=== PATIENT | male | born 1955 | race African-American/Black ===

== ENCOUNTER 2017-06-07 18:16 | Observation (INO) | payer OTHER ==
[~2017-06-07] VITALS: Ht 175.3 cm; Wt 84.2 kg
[~2017-06-07 18:16] MED LIST: ALBUTEROL2 MG; ANUCORT-HC25 M1 PO; ATROVENT HFA17 MCG; CIPROFLOXACN500 MG PO; COLACE100 MG PO; DILAUDID2 MG/ML IV; FLUTICASONE50 MCG; HYDROCHLOROT25 MG PO; HYDROCO/APAP1 T12 PO; LOPID600 MG PO; NEURONTIN300 MG PO; PERCOGESIC1 TAB PO; PREDNISONE10 MG PO; PRILOSEC20 MG PO; ROBITUSSIN AC10 ML PO; SIMETHICONE80 M2 PO; SINGULAIR PO; VERAPAMIL240 M1 PO
[2017-06-07 18:58] LABS: HEMOGLOBIN 13.9 g/dl (14.0-18.0); IMMATURE GRANULOCYTES 0.6 % (0.0-1.0); MEAN CELL VOLUME 85.3 fL CALC (80.0-100.0); MEAN CORPUSCULAR HGB 26.9 pG CALC (26.0-32.0); MEAN CORPUSCULAR HGB CONC 31.6 g/L CALC (32.0-36.0); NEUT# 9.37 thou/uL (1.82-7.42); RED BLOOD COUNT 5.16 mill/uL (4.70-6.10); RED CELL DISTRI WIDTH 13.6 % (11.5-15.5)
[2017-06-07 19:14] LABS: ALBUMIN 4.6 g/dL (3.2-5.0); ALKALINE PHOSPHATASE 138 u/l (38-126); ANION GAP 20 (6-22 (CALC)); BILIRUBIN, TOTAL 0.4 mg/dL (0.0-1.4); BUN 19 mg/dL (8-23); BUN/CREATININE RATIO 20 (12-20 (CALC)); CARBON DIOXIDE 23 mmol/l (22-30); CHLORIDE 98 mmol/l (95-108); CREATININE 0.9 mg/dL (0.7-1.3); GFR > 60 ML/MIN (>=60 (CALC)); GFR FOR AFR.AMER. > 60 ML/MIN (>=60 (CALC)); POTASSIUM 4.3 mmol/l (3.5-5.1); SGOT/AST 23 u/l (19-48); SGPT/ALT 16 u/l (11-66); SODIUM 136 mmol/l (137-146); TOTAL PROTEIN 8.3 g/dL (6.3-8.2)
[2017-06-07 19:26] LABS: MYOGLOBIN 52 ng/mL (0 - 121)
[2017-06-07] MEDS ORDERED: BENTYL10 MG PO (20:05)
[2017-06-07] MEDS ORDERED: LASIX 40 MG40 MG/TAB PO (20:06)
[2017-06-07] MEDS ORDERED: ADVAIR DISK1 INH (20:06)
[2017-06-07] MEDS ORDERED: BRILINTA90 MG PO (20:08)
[2017-06-07] MEDS ORDERED: PREVACID30 M1 PO (20:09)
[2017-06-07] MEDS ORDERED: LISINOPRIL5 MG PO (20:09)
[2017-06-07] MEDS ORDERED: METOPROL TAR25 MG PO (20:10)
[2017-06-07] MEDS ORDERED: KLOR-CON M2020 MEQ PO (20:11)
[2017-06-07] MEDS ORDERED: THEOPHYLLINE S300 MG PO (20:12)
[2017-06-07 20:33] LABS: AMYLASE 202 u/l (30-110); LIPASE 336 u/l (23-300)
[2017-06-07 22:00] VITALS: BP 105/50
[2017-06-07 22:04] LABS: URINE BLOOD DIPSTICK NEGATIVE (NEGATIVE); URINE COLOR YELLOW; URINE GLUCOSE - DIPSTICK NEGATIVE (NEGATIVE); URINE KETONE NEGATIVE (NEGATIVE); URINE LEUK ESTERASE NEGATIVE (NEGATIVE); URINE NITRITE - DIPSTICK NEGATIVE (Negative); URINE PH 5.5 (4.5-8.0); URINE PROTEIN - DIPSTICK NEGATIVE (NEG-TRACE); URINE SPECIFIC GRAVITY 1.025; URINE UROBILINOGEN - DIPSTICK 0.2 E.U./dL (0.2)
[2017-06-07 22:07] LABS: URINE BILIRUBIN - DIPSTICK NEGATIVE (NEGATIVE); URINE CLARITY CLEAR
[2017-06-08 00:10] VITALS: BP 85/62
[2017-06-08 04:50] VITALS: BP 94/65
[2017-06-08 06:36] LABS: HEMATOCRIT 38.7 % (39.0-50.0); HEMOGLOBIN 12.2 g/dl (14.0-18.0); IMMATURE GRANULOCYTES 0.7 % (0.0-1.0); MEAN CELL VOLUME 85.4 fL CALC (80.0-100.0); MEAN CORPUSCULAR HGB 26.9 pG CALC (26.0-32.0); MEAN CORPUSCULAR HGB CONC 31.5 g/L CALC (32.0-36.0); NEUT# 5.59 thou/uL (1.82-7.42); RED BLOOD COUNT 4.53 mill/uL (4.70-6.10); RED CELL DISTRI WIDTH 13.6 % (11.5-15.5)
[2017-06-08 06:53] LABS: ANION GAP 18 (6-22 (CALC)); BUN 13 mg/dL (8-23); BUN/CREATININE RATIO 17 (12-20 (CALC)); CALCULATED LDLCHOLESTEROL 50 mg/dL (62-129 (CALC)); CARBON DIOXIDE 24 mmol/l (22-30); CHLORIDE 102 mmol/l (95-108); CHOLESTEROL HDL RATIO 2.1 (<4.4 (CALC)); CREATININE 0.7 mg/dL (0.7-1.3); GFR > 60 ML/MIN (>=60 (CALC)); GFR FOR AFR.AMER. > 60 ML/MIN (>=60 (CALC)); HDL CHOLESTEROL 60 mg/dL (>=40); POTASSIUM 4.3 mmol/l (3.5-5.1); SODIUM 140 mmol/l (137-146); TOTAL CHOLESTEROL 129 mg/dl (0-199); TOTAL TRIGLYCERIDES 93 mg/dl (30-149); VLDL CHOLESTROL 19 mg/dl (4-45 (CALC))
[2017-06-08 07:52] VITALS: BP 113/74
[2017-06-08 12:00] VITALS: BP 108/73
[2017-06-08 16:00] VITALS: BP 114/68
== END 2017-06-08 18:19 | disposition designated cancer center or children's hospital (05) | DRG 313 ==
LOC: ED 18:16 → ED-I 19:46 → ED 20:08 → MS2 20:09
PROVIDERS: Emergency Medicine; Nurse Practitioner Family; ADMIT Internal Medicine; ATTEND Internal Medicine
DX: R07.89 Other chest pain (principal); I25.10 Atherosclerotic heart disease of native coronary artery without angina pectoris; I95.9 Hypotension, unspecified; Z99.81 Dependence on supplemental oxygen; J44.1 Chronic obstructive pulmonary disease with (acute) exacerbation; I10 Essential (primary) hypertension; E78.5 Hyperlipidemia, unspecified; Z98.61 Coronary angioplasty status; Z87.891 Personal history of nicotine dependence; Z79.02 Long term (current) use of antithrombotics/antiplatelets; R10.13 Epigastric pain
CPT/HCPCS: G0378; S0164

== ENCOUNTER 2017-12-07 18:21 | Inpatient (IN) | payer OTHER ==
[~2017-12-07] VITALS: Ht 175.3 cm; Wt 88.2 kg
[~2017-12-07 18:21] MED LIST changes: +ADVAIR DISK1 INH; +BENTYL10 MG PO; +BRILINTA90 MG PO; +KLOR-CON M2020 MEQ PO; +LASIX 40 MG40 MG/TAB PO; +LISINOPRIL5 MG PO; +METOPROL TAR25 MG PO; +PREVACID30 M1 PO; +THEOPHYLLINE S300 MG PO
[2017-12-07 19:12] LABS: HEMATOCRIT 45.4 % (39.0-50.0); HEMOGLOBIN 14.8 g/dl (14.0-18.0); IMMATURE GRANULOCYTES 0.4 % (0.0-5.0); MEAN CELL VOLUME 84.9 fL CALC (80.0-100.0); MEAN CORPUSCULAR HGB 27.7 pG CALC (26.0-32.0); MEAN CORPUSCULAR HGB CONC 32.6 g/L CALC (32.0-36.0); NEUT# 11.46 thou/uL (1.82-7.42); RED BLOOD COUNT 5.35 mill/uL (4.70-6.10)
[2017-12-07 19:27] LABS: ANION GAP 21 (6-22 (CALC)); BILIRUBIN, TOTAL 0.5 mg/dL (0.0-1.4); BUN 17 mg/dL (8-23); BUN/CREATININE RATIO 25 (12-20 (CALC)); CARBON DIOXIDE 27 mmol/l (22-30); CHLORIDE 101 mmol/l (95-108); CREATININE 0.7 mg/dL (0.7-1.3); GFR > 60 ML/MIN (>=60 (CALC)); GFR FOR AFR.AMER. > 60 ML/MIN (>=60 (CALC)); SGOT/AST 26 u/l (19-48); SGPT/ALT 23 u/l (11-66); SODIUM 144 mmol/l (137-146)
[2017-12-07 19:29] LABS: ALKALINE PHOSPHATASE 192 u/l (38-126); TOTAL PROTEIN 9.8 g/dL (6.3-8.2)
[2017-12-07 19:38] LABS: MYOGLOBIN 56 ng/mL (0 - 121)
[2017-12-07] MEDS ORDERED: ASPIRIN81 MG PO (20:08)
[2017-12-07] MEDS ORDERED: SPIRIVA HANDIHALER IN (20:13)
[2017-12-08] VITALS (21 sets, daily range): BP systolic 105–154; BP diastolic 74–93
[2017-12-08 06:23] LABS: HEMATOCRIT 39.7 % (39.0-50.0); IMMATURE GRANULOCYTES 0.7 % (0.0-5.0); MEAN CELL VOLUME 84.6 fL CALC (80.0-100.0); MEAN CORPUSCULAR HGB 27.7 pG CALC (26.0-32.0); MEAN CORPUSCULAR HGB CONC 32.7 g/L CALC (32.0-36.0); NEUT# 18.13 thou/uL (1.82-7.42); RED BLOOD COUNT 4.69 mill/uL (4.70-6.10); RED CELL DISTRI WIDTH 14.1 % (11.5-15.5)
[2017-12-08 06:43] LABS: ALBUMIN 4.1 g/dL (3.2-5.0); ALKALINE PHOSPHATASE 133 u/l (38-126); ANION GAP 21 (6-22 (CALC)); BILIRUBIN, TOTAL 0.2 mg/dL (0.0-1.4); BUN 19 mg/dL (8-23); BUN/CREATININE RATIO 28 (12-20 (CALC)); CARBON DIOXIDE 25 mmol/l (22-30); CHLORIDE 100 mmol/l (95-108); CREATININE 0.7 mg/dL (0.7-1.3); GFR > 60 ML/MIN (>=60 (CALC)); GFR FOR AFR.AMER. > 60 ML/MIN (>=60 (CALC)); POTASSIUM 4.1 mmol/l (3.5-5.1); SGOT/AST 23 u/l (19-48); SGPT/ALT 23 u/l (11-66); SODIUM 142 mmol/l (137-146)
[2017-12-08 06:45] LABS: TOTAL PROTEIN 7.6 g/dL (6.3-8.2)
[2017-12-09] VITALS (16 sets, daily range): BP systolic 120–159; BP diastolic 78–98
[2017-12-09 05:22] LABS: HEMATOCRIT 35.1 % (39.0-50.0); HEMOGLOBIN 11.4 g/dl (14.0-18.0); MEAN CELL VOLUME 85.2 fL CALC (80.0-100.0); MEAN CORPUSCULAR HGB 27.7 pG CALC (26.0-32.0); MEAN CORPUSCULAR HGB CONC 32.5 g/L CALC (32.0-36.0); RED BLOOD COUNT 4.12 mill/uL (4.70-6.10); RED CELL DISTRI WIDTH 14.1 % (11.5-15.5)
[2017-12-09 05:42] LABS: ANION GAP 15 (6-22 (CALC)); BUN 18 mg/dL (8-23); BUN/CREATININE RATIO 30 (12-20 (CALC)); CARBON DIOXIDE 27 mmol/l (22-30); CHLORIDE 102 mmol/l (95-108); CREATININE 0.6 mg/dL (0.7-1.3); GFR > 60 ML/MIN (>=60 (CALC)); GFR FOR AFR.AMER. > 60 ML/MIN (>=60 (CALC)); SODIUM 140 mmol/l (137-146)
[2017-12-10] VITALS (12 sets, daily range): BP systolic 131–167; BP diastolic 87–104
[2017-12-11 00:18] VITALS: BP 148/89
[2017-12-11 03:17] VITALS: BP 150/96
[2017-12-11 07:20] VITALS: BP 153/92
[2017-12-11 13:47] LABS: HEMATOCRIT 39.7 % (39.0-50.0); HEMOGLOBIN 12.7 g/dl (14.0-18.0); IMMATURE GRANULOCYTES 0.6 % (0.0-5.0); MEAN CELL VOLUME 85.4 fL CALC (80.0-100.0); MEAN CORPUSCULAR HGB 27.3 pG CALC (26.0-32.0); NEUT# 10.07 thou/uL (1.82-7.42); RED BLOOD COUNT 4.65 mill/uL (4.70-6.10); RED CELL DISTRI WIDTH 13.6 % (11.5-15.5)
[2017-12-11 15:03] LABS: BUN 14 mg/dL (8-23); BUN/CREATININE RATIO 30 (12-20 (CALC)); CHLORIDE 99 mmol/l (95-108); CREATININE 0.5 mg/dL (0.7-1.3); GFR > 60 ML/MIN (>=60 (CALC)); GFR FOR AFR.AMER. > 60 ML/MIN (>=60 (CALC)); SODIUM 143 mmol/l (137-146)
[2017-12-11 15:51] LABS: ANION GAP 10 (6-22 (CALC)); CARBON DIOXIDE 37 mmol/l (22-30); POTASSIUM 3.1 mmol/l (3.5-5.1)
[2017-12-11] MEDS ORDERED: LEVAQUIN750 MG PO (15:53)
[2017-12-11 16:13] VITALS: BP 144/79
== END 2017-12-11 17:05 | disposition designated cancer center or children's hospital (05) | DRG 871 ==
LOC: ED 18:21 → ED-I 19:40 → ED 12-08 02:12 → ICU 12-08 02:13 → MS2 12-10 13:22
PROVIDERS: Emergency Medicine; General Practice; ADMIT Internal Medicine; ATTEND Internal Medicine
PROC: 5A09357 Assistance with Respiratory Ventilation, Less than 24 Consecutive Hours, Continuous Positive Airway Pressure (ICD-10-PCS; principal; 2017-12-07)
DX: A41.9 Sepsis, unspecified organism (principal); J18.9 Pneumonia, unspecified organism; J44.0 Chronic obstructive pulmonary disease with (acute) lower respiratory infection; J44.1 Chronic obstructive pulmonary disease with (acute) exacerbation; J96.10 Chronic respiratory failure, unspecified whether with hypoxia or hypercapnia; E87.2 Acidosis; I11.0 Hypertensive heart disease with heart failure; I50.9 Heart failure, unspecified; E78.5 Hyperlipidemia, unspecified; I25.10 Atherosclerotic heart disease of native coronary artery without angina pectoris; Z95.5 Presence of coronary angioplasty implant and graft; Z99.81 Dependence on supplemental oxygen; Z87.891 Personal history of nicotine dependence
CPT/HCPCS: J1650

== ENCOUNTER 2018-08-12 21:02 | Emergency (ER) | payer OTHER ==
[~2018-08-12] VITALS: Ht 175.3 cm; Wt 81.8 kg
[~2018-08-12 21:02] MED LIST changes: +ASPIRIN81 MG PO; +LEVAQUIN750 MG PO; +SPIRIVA HANDIHALER IN
[2018-08-12 21:34] LABS: HEMATOCRIT 44.7 % (39.0-50.0); HEMOGLOBIN 14.3 g/dl (14.0-18.0); IMMATURE GRANULOCYTES 0.8 % (0.0-5.0); MEAN CORPUSCULAR HGB 27.2 pG CALC (26.0-32.0); NEUT# 22.81 thou/uL (1.82-7.42); RED BLOOD COUNT 5.26 mill/uL (4.70-6.10); RED CELL DISTRI WIDTH 14.4 % (11.5-15.5)
--- NOTE | 2018-08-12 21:45 | NUR ---
BREATHING TREATMENT GIVEN BACK TO BACK. BREATHING TECH FOR GOOD DEPOSITION TO THE LUNGS.
[2018-08-12 21:51] LABS: ALKALINE PHOSPHATASE 126 u/l (38-126); BILIRUBIN, TOTAL 0.5 mg/dL (0.0-1.4); BUN 30 mg/dL (8-23); BUN/CREATININE RATIO 34 (12-20 (CALC)); CHLORIDE 98 mmol/l (95-108); CREATININE 0.9 mg/dL (0.7-1.3); GFR > 60 ML/MIN (>=60 (CALC)); GFR FOR AFR.AMER. > 60 ML/MIN (>=60 (CALC)); POTASSIUM 3.8 mmol/l (3.5-5.1); SODIUM 140 mmol/l (137-146); TOTAL PROTEIN 8.9 g/dL (6.3-8.2)
[2018-08-12 21:52] LABS: ANION GAP 24 (6-22 (CALC)); CARBON DIOXIDE 22 mmol/l (22-30); SGOT/AST 43 u/l (19-48)
[2018-08-12] MEDS ORDERED: PREDNISONE50 MG PO (22:56)
[2018-08-12] MEDS ORDERED: DOXYCYCL HYC100 MG PO (22:56)
[2018-08-13 00:09] VITALS: BP 136/87
== END 2018-08-13 00:09 | disposition designated cancer center or children's hospital (05) | DRG 192 ==
LOC: ED 21:02
PROVIDERS: Family Medicine
DX: J44.1 Chronic obstructive pulmonary disease with (acute) exacerbation (principal); R06.02 Shortness of breath; D72.829 Elevated white blood cell count, unspecified; T50.995A Adverse effect of other drugs, medicaments and biological substances, initial encounter; I10 Essential (primary) hypertension; Y92.89 Other specified places as the place of occurrence of the external cause

== ENCOUNTER 2019-06-28 | Inpatient (IN) | payer OTHER ==
[2019-06-28] VITALS (14 sets, daily range): BP systolic 90–127; BP diastolic 64–84
[~2019-06-28] MED LIST changes: +DOXYCYCL HYC100 MG PO; +PREDNISONE50 MG PO
--- NOTE | 2019-06-28 08:38 | NUR ---
PT TO ROOM VIA EMS WITH CPAP IN PLACE; BRITTA X 2; RT AND DR FITZPATRICK AT [facility]
[2019-06-28 09:17] LABS: HEMATOCRIT 44.4 % (39.0-50.0); IMMATURE GRANULOCYTES 0.5 % (0.0-5.0); MEAN CELL VOLUME 80.6 fL CALC (80.0-100.0); MEAN CORPUSCULAR HGB 25.4 pG CALC (26.0-32.0); MEAN CORPUSCULAR HGB CONC 31.5 g/L CALC (32.0-36.0); NEUT# 18.93 thou/uL (1.82-7.42); RED BLOOD COUNT 5.51 mill/uL (4.70-6.10); RED CELL DISTRI WIDTH 16.9 % (11.5-15.5)
--- NOTE | 2019-06-28 09:30 | NUR ---
DR FITZPATRICK AT BEDSIDE FOR CENTRAL LINE PLACEMENT
[2019-06-28 09:41] LABS: INTERNATIONAL NORMALIZED RATIO 1.2 RATIO (0.7-1.3)
[2019-06-28 09:45] LABS: ALBUMIN 4.8 g/dL (3.2-5.0); ALKALINE PHOSPHATASE 135 u/l (38-126); BUN 12 mg/dL (8-23); BUN/CREATININE RATIO 11 (12-20 (CALC)); CHLORIDE 98 mmol/l (95-108); CREATININE 1.2 mg/dL (0.7-1.3); GFR > 60 ML/MIN (>=60 (CALC)); GFR FOR AFR.AMER. > 60 ML/MIN (>=60 (CALC)); SGOT/AST 21 u/l (19-48); SODIUM 139 mmol/l (137-146)
[2019-06-28 09:47] LABS: ANION GAP 21 (6-22 (CALC)); BILIRUBIN, TOTAL 0.5 mg/dL (0.0-1.4); CARBON DIOXIDE 23 mmol/l (22-30); TOTAL PROTEIN 8.7 g/dL (6.3-8.2)
--- NOTE | 2019-06-28 10:00 | NUR ---
IVF INFUSING TO RH AND LAC; IV ANTIBIOTICS INFUSING PER MAR; PT ADVISED ON POC AND ATTEMPT FOR FURTHER ATTEMPTS FOR CENTRAL LINE PLACEMENT; NO S/S OF HEMATOMA TO RIGHT GROIN SITE; DRESSING IN PLACE; PT DENIES ANY NEEDS AT THIS TIME; PT ADVISED ON POC AND CONTINUED WAIT TIME
[2019-06-28] MEDS ORDERED: DIPHENHYDRAM50 M2 PO (10:11)
[2019-06-28] MEDS ORDERED: OMEPRAZOLE DR20 MG PO (10:11)
--- NOTE | 2019-06-28 11:00 | NUR ---
PT SITTING UP ON STRETCHER; BIPAP IN PLACE; PT TOLERATING WELL; VSS; PT ADVISED OF CONTINUED WAIT TIME; WILL CONTINUE TO MONITOR
--- NOTE | 2019-06-28 12:05 | NUR ---
PT ADMITTED TO ICU BED 8 FROM ED FOR SEPSIS AND PNUEMONIA. PT ESCORTED WITH GUARDS X2 AND RT WITH BIPAP. PT A&OX4, ABLE TO MAKE NEEDS KNOWN. RESP SHALLOW AND FAST, SA02@89% ON BIPAP. PT TOLERATING WELL. PT TRANSFERRED FROM STRETCHER TO BED WITH MAX ASSIST. ORIENTED TO CALL LIGHT, ROOM AND UNIT. PT REMAINS NPO. CALL LIGHT IN REACH. WILL MONITOR.
--- NOTE | 2019-06-28 12:05 | NUR ---
Admission Note Report Given to: STEFANIE GUTIERREZ Transported by: Wheelchair X Stretcher Transported with: X Nurse Transporter X Patent IV X O2 X Capacitor Pack Press Operator Location: X ICU MS2
--- NOTE | 2019-06-28 13:20 | NUR ---
DR. MARVIN AT BEDSIDE FOR ASSESSMENT AND TO DISCUSS PLAN OF CARE, DISCUSSED POSSIBILITY OF TUBE PLACEMENT. PT DECLINED. GUARDSX2 REMAIN AT BEDSIDE.
--- NOTE | 2019-06-28 13:25 | NUR ---
RT NOTIFIED PER DR. MARVIN. ARRIVED AT BEDSIDE. PT BIPAP REMOVED, PLACED ON NON-REBREATHER. PT TOLERATING. PT CONTINUES TO BE TACHY ON TELEMETRY, HR 150'S.
--- NOTE | 2019-06-28 13:26 | NUR ---
BIPAP STANDBY. PLACED ON 3L NC PER DR. TYSON.
--- NOTE | 2019-06-28 14:00 | NUR ---
DR. MARVIN NOTIFIED, PT REMAINS TACHY IN 150'S, NEW ORDERS TO KEEP HYDRATING ORDERED AND REPEAT LACTIC, NOTED. PT DENIES CP, OR DISTRESS AT THIS TIME. CALL LIGHT IN REACH. WILL MONITOR.
--- NOTE | 2019-06-28 14:26 | NUR ---
LAB AT BEDSIDE FOR BLOOD DRAW.
--- NOTE | 2019-06-28 16:15 | NUR ---
LACTIC OBTAINED FROM [facility]. PT TOLERATED WELL.
--- NOTE | 2019-06-28 19:30 | NUR ---
PT RESTING IN BED,NO SIGNS OF DISTRESS NOTED, NONREBREATHER IN PLACE 4L, PT ALERT AND ORIENTED X3, RESP EVEN AND UNLABORED. PT NPO REQUESTING FOOD, WILL CALL MD FOR ORDER. DISCUSSED POC, FLUIDS RUNNING TO RIJ, GUARDS X2 AT BEDSIDE, ASSESSMENT COMPLETED CALL LIGHT IN REACH,CONTINUE TO MONITOR.
--- NOTE | 2019-06-28 20:06 | NUR ---
SPOKE WITH OBTAINED ORDER FOR CARDIAC DIET. PT CONTENT, SNACKS GIVEN AND JUICE. GUARDS AT BEDSIDE.
--- NOTE | 2019-06-28 21:36 | NUR ---
RT AT BEDSIDE, ASKING PT IF HE WOULD LIKE TO BE PLACED ON BIPAP, PT SATTING 99% ON NONREBREATHER, PT STATES HE IS COMFORTABLE IS, DOES NOT WANT BIPAP. PT AND GUARDS INSTRUCTED TO NOTIFY HORSE TRAINER IF PT BECOMES UNDER DISTRESS. CALL LIGHT IN REACH,CONTINUE TO MONITOR.
--- NOTE | 2019-06-28 22:24 | NUR ---
PT HAS NOT VOIDED, DECLINED NEED TO VOID. CALL LIGHT IN REACH,CONTINUE TO MONITOR. NEW IV BAG CHRISTELLE CORREA INITIATED. GUARDS AT BEDSIDE
[2019-06-29] VITALS (14 sets, daily range): BP systolic 95–114; BP diastolic 57–75
--- NOTE | 2019-06-29 | NUR ---
CON INITATIATED. PT BLADDER SCANNED 697ML IN BLADDER, ATTEMPTED TO GET PT UP OUT OF BED, PT DECLINER STATES HE DOES NOT HAVE THE URGE TO PEE. INFORMED PT THAT CLEANER HOUSEKEEPING WILL WAIT BUT ATTEMPT TO HAVE PT VOID AT A LATER TIME. CALL LIGHT IN REACH, GUARDS X2. CONTINUE TO MONITOR.
--- NOTE | 2019-06-29 03:37 | NUR ---
PT RESTING IN BED WITH EYES CLOSED, NO SIGNS OF DISTRESS NOTED, RESP EVEN AND UNLABORED. CALL LIGHT IN REACH, GUARDS AT BEDSIDE, CONTINUE TO MONITOR.
--- NOTE | 2019-06-29 04:17 | NUR ---
PT VOIDED 700ML OF DARK YANCY URINE, SPECIMEN SENT TO LAB.
[2019-06-29 04:45] LABS: URINE BILIRUBIN - DIPSTICK NEGATIVE (NEGATIVE); URINE BLOOD DIPSTICK NEGATIVE (NEGATIVE); URINE COLOR YELLOW; URINE GLUCOSE - DIPSTICK NEGATIVE (NEGATIVE); URINE KETONE TRACE mg/dL (NEGATIVE); URINE LEUK ESTERASE NEGATIVE (NEGATIVE); URINE NITRITE - DIPSTICK NEGATIVE (Negative); URINE PROTEIN - DIPSTICK NEGATIVE (NEG-TRACE); URINE SPECIFIC GRAVITY 1.025; URINE UROBILINOGEN - DIPSTICK 0.2 E.U./dL (0.2)
--- NOTE | 2019-06-29 05:02 | NUR ---
AM LABS OBTAINED FROM CENTRAL LINE, PT TOLERATED WELL. MEDICATED WITH ROBITUSSIN. CALL LIGHT IN REACH,CONTINUE TO MONITOR. GUARDS X2.
[2019-06-29 05:24] LABS: MEAN CELL VOLUME 84.1 fL CALC (80.0-100.0); MEAN CORPUSCULAR HGB 25.6 pG CALC (26.0-32.0); MEAN CORPUSCULAR HGB CONC 30.4 g/L CALC (32.0-36.0); RED BLOOD COUNT 3.95 mill/uL (4.70-6.10); RED CELL DISTRI WIDTH 17.1 % (11.5-15.5)
[2019-06-29 05:29] LABS: HEMATOCRIT 33.2 % (39.0-50.0); HEMOGLOBIN 10.1 g/dl (14.0-18.0)
[2019-06-29 05:48] LABS: ALKALINE PHOSPHATASE 70 u/l (38-126); BILIRUBIN, TOTAL 0.3 mg/dL (0.0-1.4); BUN 9 mg/dL (8-23); BUN/CREATININE RATIO 15 (12-20 (CALC)); CHLORIDE 107 mmol/l (95-108); CREATININE 0.6 mg/dL (0.7-1.3); GFR > 60 ML/MIN (>=60 (CALC)); GFR FOR AFR.AMER. > 60 ML/MIN (>=60 (CALC)); MAGNESIUM 1.4 mg/dL (1.6-2.3); SGOT/AST 19 u/l (19-48); SODIUM 140 mmol/l (137-146)
[2019-06-29 05:55] LABS: ALBUMIN 2.9 g/dL (3.2-5.0); ANION GAP 8 (6-22 (CALC)); CARBON DIOXIDE 29 mmol/l (22-30); POTASSIUM 3.9 mmol/l (3.5-5.1); TOTAL PROTEIN 5.5 g/dL (6.3-8.2)
--- NOTE | 2019-06-29 06:45 | NUR ---
RECIEVED REPORT FROM STEFANIE HORVATH. ASSUMED PT CARE.
--- NOTE | 2019-06-29 08:00 | NUR ---
PT RESTING IN BED, ALERT, ABLE TO MAKE NEEDS KNOWN. PT DENIES CP, OR DISTRESS AT THIS TIME. REMAINS ON NON- REBREATHER, SAO2@97% . PT BECOMES SOB WITH MINIMAL EXERTION. GUARDS X2 REMAIN AT BEDSIDE. PT REMAINS SHACKLED AT E. CALL LIGHT IN REACH. WILL MONITOR.
--- NOTE | 2019-06-29 10:00 | NUR ---
PT RESTING IN BED WATCHING TV, OFFER NO COMPLAINTS AT THIS TIME. RESPIRATION EVEN/UNLABORED, URINAL AT BEDSIDE. GUARDS REMAIN AT BEDSIDE.
--- NOTE | 2019-06-29 12:02 | NUR ---
DR. MARVIN AT BEDSIDE FOR ASSESSMENT AND TO DISCUSS PLAN OF CARE, NEW ORDERS RECIEVED.
--- NOTE | 2019-06-29 13:12 | NUR ---
RADIOLOGY AT BEDSIDE FOR CXR
--- NOTE | 2019-06-29 15:30 | NUR ---
PT WAS INCONTINENT OF LARGE AMOUNT OF URINE, PT GIVEN A COMPLETE BED BATH, FULL LINEN CHANGE, ATTEMPTED CONDOM CATH, UNABLE TO UTILIZE DUE TO PENIS SIZE. WILL UPDATE DR. MARVIN. PT TOLERATED ALL ACTIVITY WELL
--- NOTE | 2019-06-29 16:13 | NUR ---
PT REQUESTED TO GO ON BIPAP , STATED " i AM TIRED, REALLY, REALLY TIRED." RT CALLED. BIPAP PLACED. CALL LIGHT IN REACH. GUARDS X2 REMAIN AT BEDSIDE.
--- NOTE | 2019-06-29 16:30 | NUR ---
BIPAP REMOVED, PT STATED HE WAS NAUSEOUS. NOTIFIED DR. MARVIN. NEW ORDERS RECIEVED.
--- NOTE | 2019-06-29 16:49 | NUR ---
RT AT BEDSIDE, BIPAP REPLACED.
--- NOTE | 2019-06-29 17:00 | NUR ---
NOTIFIED DR. MARVIN, UPDATED ON PT STATED HIS BELLY WAS BURNING, BIPAP REMOVED, NON REBREATHER PLACED. NEW ORDERS RECIEVED. LABS OBTAINED FROM CENTRAL LINE , PT TOLERATED WELL. PT CONTINUES TO NAUSEOUS AND SPITTING THICK CLEAR MUCUS IN BACK.
--- NOTE | 2019-06-29 18:06 | NUR ---
DR. MARVIN NOTIFIED OF RESULTS. PT RESTING QUIETLY IN BED.
--- NOTE | 2019-06-29 20:00 | NUR ---
awake. resps labored. has prod cough of yellow sputum. o2 cont per mask. book trimmer shows sinus rhythm hr 92. #20 lac & rt hand saline locks. rij tlc in place. refused po fluids. has not voided as of yet. rt ankle shackled to bed. guards x2 @ bedside. fall precautions cont.
--- NOTE | 2019-06-29 20:15 | NUR ---
zofran 4mg ivp given for c/o nausea.
--- NOTE | 2019-06-29 21:25 | NUR ---
robitussin 10cc po given for cough. pt requires FREQ attention from staff as he removes o2 freq, repositioned in bed, socks replaced, water given. pt is restless. resps increasing.
--- NOTE | 2019-06-29 22:15 | NUR ---
blood drawn & sent to lab.
--- NOTE | 2019-06-29 22:40 | NUR ---
pt VERY dramatic & present. c/o sob. sao2 96%. pt yelled out "i need something to calm me down!" removes o2 mask freq then o2 sat drops to 85-87%. nurse monitoring shows sinus rhythm hr 94. rt called. bipap on per pts request. dr dean notified. orders rec'd.
--- NOTE | 2019-06-29 23:15 | NUR ---
awakened pt. spoke to pt @ length regarding dramatic episode, no need for bipap, neb tx, steroids & nerve med. pt verbalized understanding. pt said "i'm so sick." pt reassured. xanax 0.25mg & sonata 5mg po given. bipap off & mask resumed.
[2019-06-30] VITALS (15 sets, daily range): BP systolic 93–128; BP diastolic 58–78
--- NOTE | 2019-06-30 00:01 | NUR ---
eyes closed. o2 cont per mask. no distress. compliance monitor shows sinus rhythm hr 90.
--- NOTE | 2019-06-30 02:00 | NUR ---
eyes closed. no distress. bottom stop attacher shows sinus rhythm pvcs hr 98.
--- NOTE | 2019-06-30 04:56 | NUR ---
blood drwn & sent to lab.
[2019-06-30 05:09] LABS: HEMATOCRIT 35.6 % (39.0-50.0); HEMOGLOBIN 10.6 g/dl (14.0-18.0); MEAN CELL VOLUME 85.8 fL CALC (80.0-100.0); MEAN CORPUSCULAR HGB 25.5 pG CALC (26.0-32.0); MEAN CORPUSCULAR HGB CONC 29.8 g/L CALC (32.0-36.0); RED BLOOD COUNT 4.15 mill/uL (4.70-6.10); RED CELL DISTRI WIDTH 17.4 % (11.5-15.5)
[2019-06-30 05:36] LABS: ANION GAP 8 (6-22 (CALC)); BILIRUBIN, TOTAL 0.3 mg/dL (0.0-1.4); BUN 14 mg/dL (8-23); BUN/CREATININE RATIO 26 (12-20 (CALC)); CARBON DIOXIDE 30 mmol/l (22-30); CHLORIDE 106 mmol/l (95-108); CREATININE 0.5 mg/dL (0.7-1.3); GFR > 60 ML/MIN (>=60 (CALC)); GFR FOR AFR.AMER. > 60 ML/MIN (>=60 (CALC)); POTASSIUM 4.2 mmol/l (3.5-5.1); SODIUM 140 mmol/l (137-146); TOTAL PROTEIN 5.8 g/dL (6.3-8.2)
[2019-06-30 05:43] LABS: ALKALINE PHOSPHATASE 144 u/l (38-126); SGOT/AST 37 u/l (19-48)
--- NOTE | 2019-06-30 06:15 | NUR ---
rij dsg changed.
--- NOTE | 2019-06-30 06:55 | NUR ---
RECVD REPORT FROM ISIS GILMAN @START OF SHIFT.
--- NOTE | 2019-06-30 07:32 | NUR ---
PT LAYING IN BED, CROOKED. ANKLE x1 SHACKLED TO BED. 2 BRITTA @BEDSIDE. PT ON NRB x2 DAYS, LAST ABG ON 06/28/2019. PT IS A DNR. PT NOT PLEASANT TOWARDS STAFF. BREATHING EVEN/UNLABORED. CALLBELL W/IN REACH.
--- NOTE | 2019-06-30 07:40 | NUR ---
PT REFUSING BREAKFAST @THIS TIME. SLEEPING ON RIGHT SIDE. TRAY LEFT IN ROOM. GAURDS x2 EATING TRAYS FROM [place].
--- NOTE | 2019-06-30 08:46 | NUR ---
DR MARVIN @BEDSIDE, ASSESSING PT. PT SLEEPY/DROWSY. ABLE TO ROLL TO THE SIDE FOR LUNG AUSCULTATION. WILL TRY PT ON NC, WILL REMOVE BIPAP FROM ROOM & GET REPEAT ABD XR. RT NOTIFIED. DR PALMA NOTIFIED OF CONSULT.
--- NOTE | 2019-06-30 09:22 | NUR ---
PLACED PT ON 10LHF NC SAO2 95%. PT TOLLERATING WELL. RR 18
--- NOTE | 2019-06-30 09:30 | NUR ---
PT MEDICATED PER EMAR +COUGH MED. PT DENIES ANY FURTHER NEEDS OR QUESTIONS.
--- NOTE | 2019-06-30 10:12 | NUR ---
DR PALMA @BEDSIDE FOR CONSULT. PT ADMITTS TO PASSING GAS & STATES HIS ABD USUALLY LOOKS LIKE THIS. PER MD, LIMIT FLUIDS.
--- NOTE | 2019-06-30 10:52 | NUR ---
DR PALMA NOTIFIED THAT UPPER GI SERIES WON'T BE DONE UNTIL TUESDAY. PT TO BE KEPT NPO UNTIL SERIES COMPLETED.
--- NOTE | 2019-06-30 11:15 | NUR ---
PT & GAURDS x2 UPDATED ON POC; AWARE OF NPO STATUS. IV ABX STARTED.
--- NOTE | 2019-06-30 11:31 | NUR ---
PORT ABD XR COMPLETED.
--- NOTE | 2019-06-30 11:46 | NUR ---
PLACE PT ON NRB, & ORDER CTA.
--- NOTE | 2019-06-30 13:17 | NUR ---
STUDENT IN PTS ROOM FOR COMPLETE BED BATH
--- NOTE | 2019-06-30 13:44 | NUR ---
RADIOLOGY NOTIFIED ABOUT NEED FOR CTA, THEY WILL CALL WHEN THEY ARE READY.
--- NOTE | 2019-06-30 14:04 | NUR ---
PT TAKEN TO CTA ON BED WITH O2, TELE, & GAURDS x2.
--- NOTE | 2019-06-30 14:07 | NUR ---
RETURNED TO GIVE PT 1300 TX AND FOUND PT BACK ON NON-REBREATHER. I WAS INFORMED BY STEFANIE CHAKRABORTY THAT SEVERAL ATTEMPTS WERE MADE TO CONTACT ME. AFTER CHECKING PHONE SYSTEM AND PAGER I FOUND ONE MISSD CALLED AT 11:40. PT SAO2 AT THIS TIME 96% AND REBREATHER MASK IS AROUND HIS CHIN. MASK PLACED ON PT FACE AND HE WAS TRANSPORTED TO CT BY STEFANIE CHAKRABORTY.
--- NOTE | 2019-06-30 14:34 | NUR ---
PT RETURNED FROM CTA, PLACED BACK ON MONITORS. BRITTA x2 @BEDSIDE.
--- NOTE | 2019-06-30 14:51 | NUR ---
PT GIVEN ICE CHIPS PER REQUEST.
--- NOTE | 2019-06-30 15:35 | NUR ---
DR MARVIN NOTIFIED OF KUB & CTA RESULTS. WILL CONTINUE POC ORDERED.
--- NOTE | 2019-06-30 17:09 | NUR ---
NURSE FROM [facility] OFFICE CALLED FOR AN UPDATE ON PTS STATUS. NURSE WANTING A FULL REPORT WHILE HE DICTATES EVERY WORD I SAY. NURSE TRANSFERED TO [facility].
--- NOTE | 2019-06-30 17:26 | NUR ---
PT C/O "REALLY BAD PAIN", WHEN ASKED WHERE, PT RESPONDED HIS STOMACH. WHEN I RETURNED WITH MEDICATIONS, PT WAS SLEEPING/SNORING. NO S/S OF DISTRESS. WILL CONTINUE TO MONITOR. PT SLEEPING/SNORING UPON MED PREP
--- NOTE | 2019-06-30 18:07 | NUR ---
PT REPOSITIONED IN BED & PROPPED UP ON PILLOW ON RIGHT SIDE D/T PT REPEATEDLY TURNING TO RIGHT SIDE. ENCOURAGED PT TO SIT UPRIGHT TO HELP OPEN UP LUNGS. RT @BEDSIDE FOR BREATHING TREATMENT. BRITTA garcia REMAIN @BEDSIDE. PT YELLING OUT TO UNIT THAT HE WANTS JUICE; PT REMINDED HE IS NPO UNTIL TEST ON TUESDAY
--- NOTE | 2019-06-30 20:00 | NUR ---
awake. nad. o2 cont per nrb. lung sounds diminished throughout. prod cough of thick yellow sputum. youth nutritional monitor shows sinus rhythm hr 88. #20 lac & rt hand saline lock. rij tlc in place. ns infusing @ 20cchr. remains npo. voids per urinal. shackles cont to rt ankle. fall precautions cont. guards x2 @ bedside.
--- NOTE | 2019-06-30 22:00 | NUR ---
pt asked this television script writer to straighten bed. spoke to pt @ length regarding dramatic episode last night. bath & bed change x2 assists. ke well. pt thanked staff.
--- NOTE | 2019-06-30 22:00 | NUR ---
robitussin 10cc po per request for cough.
[2019-07-01] VITALS (16 sets, daily range): BP systolic 97–143; BP diastolic 55–84
--- NOTE | 2019-07-01 00:01 | NUR ---
eyes closed. no distress. ardiac monitor shows sinus rhythm pvcs hr 80.
--- NOTE | 2019-07-01 02:00 | NUR ---
awake. no c/o voiced. no distress. o2 cont. guards x2 @ bedside.
--- NOTE | 2019-07-01 04:43 | NUR ---
blood drawn & sent to lab.
[2019-07-01 05:52] LABS: HEMATOCRIT 33.3 % (39.0-50.0); MEAN CELL VOLUME 85.2 fL CALC (80.0-100.0); MEAN CORPUSCULAR HGB 25.6 pG CALC (26.0-32.0); RED BLOOD COUNT 3.91 mill/uL (4.70-6.10); RED CELL DISTRI WIDTH 17.4 % (11.5-15.5)
--- NOTE | 2019-07-01 05:54 | NUR ---
no resp diff this shift. cont to have freq prod cough. guards x2 @ bedside.
--- NOTE | 2019-07-01 06:55 | NUR ---
PT SCREAMING OUT FOR "NURSE", UPON ENTRY OF ROOM PT CONFRONTATIONAL WITH THIS RN. PT STATES HE CANT BREATH BUT CONSTANTLY (FOR THE 2ND DAY) REMOVED NC &/OR NRB. PT DENIES REMOVING O2, STATING "IT JUST FALLS OUT". PT CONSTANTLY NEEDING TO BE REPOSITIONED D/T PT CURLING UP ON RIGHT SIDE OF BED, EVEN WHEN PROPPED UP. PT CONTINUES TO SPIT OUT THICK YELLOW MUCOS.
--- NOTE | 2019-07-01 07:30 | NUR ---
PT SLEEPING ON RIGHT SIDE. 100% ON 10L HIGHFLOW NC. NO S/S OF DISTRESS AT THIS TIME. BRITTA x2 @BEDSIDE.
--- NOTE | 2019-07-01 10:21 | NUR ---
S: JAMMIE ONOFRE is a 64 M who presents with pneumonia, sepsis. All medications in patient's chart were reviewed. O: VS: BP 124/84 mmHg, P 91 bpm, RR 22 breaths/min, T 99.2 F W 85.595 kg, HT 69 in, Scr 0.5 mg/dl A: Blood culture is pending. Urine culture is pending. P: Patient is on Zosyn 3.375g IV q6h. Vancomycin ordered for pharmacy to dose. Change Vancomycin to 1g IV Q8H. Obtained trough level was 8. Vancomycin trough is drawn before the 4th dose on 07/02/19 @ 0130. Vancomycin goal trough is between 15-20 mcg/ml. Pharmacy will follow and or advise on antibiotics use as needed.
--- NOTE | 2019-07-01 10:33 | NUR ---
CHRISTELLE HELD UNTIL THROUGH RESULTS, PER PHARMACY
--- NOTE | 2019-07-01 11:00 | NUR ---
DR MARVIN @BEDSIDE, ASSESSING PT, EXPLAINING NPO STATUS & TEST RSULTS. PT NEEDS FREQUENT EXPLANATION OF POC & DX. BRITTA garcia @BEDSIDE.
--- NOTE | 2019-07-01 12:29 | NUR ---
EXPLAINED TO PT/BRITTA ABOUT CALLBELL AGAIN. PT CONTINUES TO SCREAM "NURSE" EVERY 30 SECONDS UNTIL STAFF IS AVAILABLE TO ADDRESS PTS NEEDS. PT AWARE THAT STAFF WILL RESPOND SOON POSSIBLE WHEN THE CALLBELL IS USED.
--- NOTE | 2019-07-01 13:41 | NUR ---
DR PALMA @BEDSIDE.
--- NOTE | 2019-07-01 14:00 | NUR ---
RT @BEDSIDE FOR BREATHING TREATMENT.
--- NOTE | 2019-07-01 14:58 | NUR ---
PT SLEEPING IN BED, NO S/S OF DISTRESS AT THIS TIME. BREATHING EVEN/UNLABORED, O2 98% ON 10L HIGHFLOW NC. PT CONTINUES TO CURL UP ON RIGHT SIDE. BRITTA x2 @BEDSIDE.
--- NOTE | 2019-07-01 18:00 | NUR ---
PT UPSET WITH STAFF STAFF WILL NOT GIVE HIM ICE CHIPS EVERY 30-60MINS. EXLAINED TO PT AGAIN THAT ICE CHIPS ARE SUPPOSED TO AN OCCASSIONAL RELEIF NOT A CONSTANT, IF HE WAS DRINKING.
--- NOTE | 2019-07-01 18:12 | NUR ---
CALLED TO ROOM BY DANY PT STATES HE HAS TO GET UP TO THE TOILET. UPON ENTERING ROOM, PT ASKED FOR ICE CHIPS AGAIN. DANY AGAIN CAME OUT PT STATES HE HAS TO GET UP TO POOP. UPON ENTERING ROOM & OFFERING PT BED BEAULIEU, PT REFUSED TO SPEAK TO THIS RN. EDUCATED PT ON SOB WITH EXERTION & AMBULATION TO BSC/ NOT TOILET PT HAS TO STAY ON MONITORS. THIS RN FEELS PT IS TRYING TO BE MANIPULATIVE.
--- NOTE | 2019-07-01 19:45 | NUR ---
awake. nad. cont to have prod cough of yellow thick sputum. mental hygiene consultant shows sinus rhythm pvcs hr 85. #20 lac saline lock. rij tlc in place. ns infusing @ 10cchr. voids per urinal. fall precautions & shackle to rt ankle cont. guards x2 @ bedside.
--- NOTE | 2019-07-01 22:00 | NUR ---
eyes closed. no distress. monitoring coordinator shows sinus rhythm hr 78.
[2019-07-02] VITALS (11 sets, daily range): BP systolic 102–155; BP diastolic 63–94
--- NOTE | 2019-07-02 00:01 | NUR ---
awake. requesting ice chips. request denies. instructed pt about ugi in am.
--- NOTE | 2019-07-02 02:00 | NUR ---
eyes closed. no distress. bus driver/monitor shows sinus rhythm hr 74.
--- NOTE | 2019-07-02 04:30 | NUR ---
blood drawn & sent to lab.
[2019-07-02 05:17] LABS: HEMATOCRIT 34.4 % (39.0-50.0); HEMOGLOBIN 10.3 g/dl (14.0-18.0); MEAN CELL VOLUME 83.7 fL CALC (80.0-100.0); MEAN CORPUSCULAR HGB 25.1 pG CALC (26.0-32.0); MEAN CORPUSCULAR HGB CONC 29.9 g/L CALC (32.0-36.0); RED BLOOD COUNT 4.11 mill/uL (4.70-6.10); RED CELL DISTRI WIDTH 16.8 % (11.5-15.5)
[2019-07-02 05:42] LABS: ANION GAP 5 (6-22 (CALC)); BUN 19 mg/dL (8-23); BUN/CREATININE RATIO 42 (12-20 (CALC)); CARBON DIOXIDE 34 mmol/l (22-30); CHLORIDE 106 mmol/l (95-108); CREATININE 0.5 mg/dL (0.7-1.3); GFR > 60 ML/MIN (>=60 (CALC)); GFR FOR AFR.AMER. > 60 ML/MIN (>=60 (CALC)); POTASSIUM 4.5 mmol/l (3.5-5.1); SODIUM 141 mmol/l (137-146)
--- NOTE | 2019-07-02 06:00 | NUR ---
has been yelling out freq for ice chips. guards x2 remain @ bedside.
--- NOTE | 2019-07-02 07:00 | NUR ---
PT NURSE PARALEGAL LIGHT ASKING FOR ICE CHIPS. EXPLAINED THAT PATIENT IS NPO. PATIENT HAS TRASH ON FLOOR THAT HE STATES HE THREW "BECAUSE I WAS PISSED OFF".
--- NOTE | 2019-07-02 07:15 | NUR ---
PT RESTING IN BED AWAKE. DEMANDING AND YELLING. PT IS ALERT AND ORIENTED X3. SHIFT ASSESSMENT COMPLETED AT THIS TIME. IV PATENT X1. REMOVED 20 LAC. CATH TIP INTACT. CALL LIGTH IN REACH. GUARDS X2 AT BEDSIDE. SHACKLE TO LE X1. WILL CONTINUE TO MONITOR
--- NOTE | 2019-07-02 07:20 | NUR ---
RADIOLOGY CALLED AND STATES THAT SABA MARTINEZ IS OUT THIS WEEK AND THE UPPER GI WILL NOT BE ABLE TO BE DONE. DR GAINES NOTIFIED. ORDERS RECEIVED FOR EGD.
--- NOTE | 2019-07-02 07:30 | NUR ---
PT REFUSES EGD AND STATES THAT HE WANTS ICE CHIPS. EXPLAINED THAT I WOULD HAVE TO LET THE DOCTOR KNOW.
--- NOTE | 2019-07-02 07:55 | NUR ---
PT PATCH SETTER LIGHT DEMANDING ICE CHIPS AGAIN EXPLAINED THAT I NEEDED AN ORDER FROM THE DOCTOR. AND THE DOCTOR JUST OKAYED A CLEAR LIQUID DIET. PATIENT PROVIDED ICE CHIPS AND WATER.
--- NOTE | 2019-07-02 08:30 | NUR ---
PT REPOSITIONED IN BED AND SET UP FOR AM MEAL
--- NOTE | 2019-07-02 09:01 | NUR ---
DR MARVIN AT BEDSIDE
--- NOTE | 2019-07-02 10:00 | NUR ---
PT ASSISTED SELF UP TO CHAIR. GUARDS AT BEDSIDE.
--- NOTE | 2019-07-02 10:37 | NUR ---
PT ASSISTED BACK TO BED.
--- NOTE | 2019-07-02 10:40 | NUR ---
PT YELLING OUT IN ROOM. PT STATES THAT HE NEEDS SOMETHING FOR HIS NERVES. EXPLAINED THAT I JUST GAVE HIM A XANAX. PT THEN STATES HE NEEDS A PAIN PILL TO CALM HIM EXPLAINED THAT IS NOT WHAT PAIN PILLS ARE FOR. PT STATES ABDOMEN IS HURTING. EXPLAINED THAT WE ARE WAITING FOR A CT
--- NOTE | 2019-07-02 10:53 | NUR ---
PT DERMATOLOGY SALES REPRESENTATIVE LIGHT ABOUT EVERY 5 MINUTES ASKING FOR SOMETHING FOR NERVES. EXPLAINED THAT HE HAS ALREADY BEEN MEDICATED WITH XANAX.
--- NOTE | 2019-07-02 11:00 | NUR ---
DR MARVIN AT BEDSIDE AT THIS TIME
--- NOTE | 2019-07-02 11:10 | NUR ---
PT OUTPATIENT PSYCHIATRIST LIGHT REQUESTING "THAT PILL"
--- NOTE | 2019-07-02 11:19 | NUR ---
PT ON CALLLIGHT REQUESTING SOMETHING FOR NERVES. PT MEDICATED WITH XANAX PER MD ORDERS AND MAR
--- NOTE | 2019-07-02 11:30 | NUR ---
PT CATTLE SORTER LIGHT AND STATES THAT HIS FEET ARE TANGLED. EXPLAINED THAT HIS FOOT IS SHACKLED. PT DISPLEASED WITH THAT EXPLAINED AGAIN THAT THE GUARDS HAVE HIM SHACKLED.
--- NOTE | 2019-07-02 11:40 | NUR ---
PT SENIOR DB2 SYSTEMS PROGRAMMER LIGHT STATING THAT HE NEEDS TO BE PULLED UP. PT REPOSITIONED IN BED AND THEN CUSSED STAFF AND GUARDS.
--- NOTE | 2019-07-02 11:44 | NUR ---
NURSE LORENZ FROM FACILITY CALLED FOR UPDATE. UPDATE PROVIDED
--- NOTE | 2019-07-02 12:00 | NUR ---
PT NEWSPAPER CARRIER LIGHT AND STATES HE CANT GET HIS LEG BACK IN BED.
--- NOTE | 2019-07-02 12:12 | NUR ---
PT ALODIZE MACHINE HELPER LIGHT THIS NURSE INTO ROOM. PT YELLING AND CURSING. PT STATES "TAKE YOUR FUCK ASS ON". THIS NURSE EXITED ROOM.
--- NOTE | 2019-07-02 12:26 | NUR ---
PT SUPERVISOR GREEN END DEPARTMENT LIGHT TO BE REPOSITIONED IN BED. PT REPOSITIONED.
--- NOTE | 2019-07-02 12:30 | NUR ---
PT YELLING OUT IN ROOM. PT WANTS ALBUTEROL EXPLAINED THAT HE WAS GIVEN A NEB TREATMENT PREVIOUSLY. PT INSTRUCTED TO PLACE O2 BACK IN NOSE. O2 NC CURRENTLY ON NECK
--- NOTE | 2019-07-02 12:50 | NUR ---
PT YELLING OUT, CURSING, THIS NURSE INTO ROOM. PT STATES THAT HE PEED ON HIMSELF. PT STILL NOT WEARING O2. INSTRUCTED PATIENT TO PLACE O2 BACK ON.
--- NOTE | 2019-07-02 13:00 | NUR ---
PT CLEANSED OF URINE. LINENS CHANGED. PT REFUSED TO WASH HIMSELF WITH HYGIENE ITEMS PROVIDED.
--- NOTE | 2019-07-02 13:42 | NUR ---
PT TO CT VIA WHEELCHAIR ACCOMPANIED BY BRIAR WOOD SORTER
--- NOTE | 2019-07-02 14:02 | NUR ---
PT RETURNED FROM RADIOLOGY. PT INCONTINENT OF URINE WHILE IN RADIOLOGY. PT CLEANSED AND NEW GOWN PROVIDED.
--- NOTE | 2019-07-02 16:00 | NUR ---
PT RESTING IN BED WITH EYES CLOSED. RESP ARE EVEN AND UNLABORED. NO DISTRESS NOTED. CALL LIGHT IN REACH. WILL CONTINUE OIT MONIOTR.
--- NOTE | 2019-07-02 17:40 | NUR ---
VANCO TROUGH OBTAINED FROM [facility].
--- NOTE | 2019-07-02 17:46 | NUR ---
PT YELLING OUT. THIS CLINICAL REHAB SPECIALIST INTO ROOM. PT SITTING UP ON SIDE OF BED. ENCOURAGED PATIENT TO TAKE SLOW DEEP BREATHS.
--- NOTE | 2019-07-02 17:52 | NUR ---
PT SET UP FOR PM MEAL
--- NOTE | 2019-07-02 18:35 | NUR ---
PT BILINGUAL RECRUITER LIGHT THIS SATELLITE INSTALLER INTO ROOM "I PEED ON MYSELF" LINEVENUS CHANGED
--- NOTE | 2019-07-02 20:00 | NUR ---
RESTING IN BED WITH EYES CLOSED. AWAKENS TO NAME. RESP NON-LABORED. O2 ON AT 3 L NC. O2 SAT 95% BREATH SOUNDS DIMINISHED WITH FAINT WHEEZES. MOIST COUGH, EXPECTORATING THICK PALE YELLOW MUCOUS. AB DSOFTLY DISTENDED WITH HYPOACTIVE BOWEL SOUNDS. NO PERIPHERAL EDEMA, PULSES PALPABLE. RIJTLC IN PLACE, IV PUMP KEEPS ALARMING-RIJ SITE FOUND TO BE PUFFY AND DIFFICULT TO FLUSH WITH NO BLOOD RETURN FROM ANY OF THE PORTS. NEW IV SITE ESTABLISHED IN LFA, #20 X1 ATTEMPT VANCOMYCIN INFUSING TO NEW SITE. MEAT BONER SHOWS SR.
--- NOTE | 2019-07-02 20:30 | NUR ---
PATIENT O2 SAT BRIEFLY DROPPED. PATIENT SLEEPS CURLED WAY OVER ON RIGHT SIDE. PULLED UP IN BED AND RESTING IN HIGH FOLWERS POSITION. O2 SAT PICKED BACK UP TO 90'S. CALLED RT FOR NEB TREATMENT. O2 INCREASED FROM 3 L HF NC TO 5 L. SCHEDULED DOSE OF SOLUMEDROL GIVEN AT THIS TIME. MEDICATED WITH ROBITUSSIN ORDERED PRN FOR COUGH.
--- NOTE | 2019-07-02 21:10 | NUR ---
XANAX GIVEN FOR RESTLESSNESS.
--- NOTE | 2019-07-02 21:45 | NUR ---
RESTING CALMLY AND QUIETLY. O2 SAT 99%
--- NOTE | 2019-07-02 23:00 | NUR ---
PATIENT INCONTINENT OF URINE, GOWN CHANGED. REPOSITIONED, ENCOURAGE TO TURN FROM SIDE TO SIDE.
[2019-07-03] VITALS (9 sets, daily range): BP systolic 100–154; BP diastolic 44–92
--- NOTE | 2019-07-03 00:05 | NUR ---
VSS. SR ON MONITOR WITH OCC PVC'S. O2 SAT 99%
--- NOTE | 2019-07-03 02:00 | NUR ---
SLEEPS FOR SHORT INTERVALS. VSS. SR WITH PVC'S ON MONITOR.
--- NOTE | 2019-07-03 04:30 | NUR ---
INCONTINENT OF URINE. COMPLETE BED BATH GIVEN. BRIEF PLACED ON PATIENT. PATIENT IS ABLE TO ASSIST WITH TURNING AND REPOSITIONING. CONTINUES WITH MOIST PRODUCTIVE COUGH. SALINE LOCK IN LAC, SITE BENIGN, FLUSHED AND PATENT. [facility] DC'D WITH CATHETER INATCT. STERILE 4X4 SECURED WITH TEGADERM APPLIED TO SITE.
--- NOTE | 2019-07-03 06:00 | NUR ---
XANAX PO GIVEN FOR RESTLESSNESS. IV SITE MAINTAINED IN LAC.
--- NOTE | 2019-07-03 07:00 | NUR ---
PT SITTING UP ON BSC AT THIS TIME FOR BM. PT IS ALERT AND ORIENTED X3. SHIFT ASSESSMENT COMPLETED AT THIS TIME. IV PATENT X1. PT HAD EXTRA LARGE BM. CLEANSED AND ASSISTED BACK TO BED. CALL LIGHT IN REACH. GUARDS AT BEDSIDE WILL CONTINUE TO MONIOTR.
--- NOTE | 2019-07-03 08:00 | NUR ---
PT SET UP FOR AM MEAL.
--- NOTE | 2019-07-03 09:50 | NUR ---
IV site discontinued, cath intact. No edema , no redness, voices no discomfort.
--- NOTE | 2019-07-03 10:32 | NUR ---
REPORT CALLED TO REGIS WATTS ON [facility]
--- NOTE | 2019-07-03 10:40 | NUR ---
DR MARVIN NOTIFIED OF NO IV ACCESS. HE WILL CHANGE MEDS TO PO. OK FOR NO IV ACCESS AT THIS TIME.
--- NOTE | 2019-07-03 11:45 | NUR ---
pt to [facility] via bed accompanied by two nurses.
--- NOTE | 2019-07-03 12:31 | NUR ---
PT C/O UNABLE TO BREATHE, ON ASSESSMENT PT FOUND HYPERVENTILATING AND SATS UNABLE TO BE READ BY PULSE OX, RESPIRATORY NOTIFIED AND ARRIVED STAT, O2 SATS IN 70'S, PROBLEM BEING ADDRESSED AT THIS TIME, WILL CONTINUE TO MONITOR.
--- NOTE | 2019-07-03 12:50 | NUR ---
BREATHING TX GIVEN, O2 SATS @ THIS TIME = 97 ON RESP PULSE OX
--- NOTE | 2019-07-03 16:10 | NUR ---
PT COMPLAINING AGAIN HE CANT BREATHE, O2 SATS ON 10L HIFLO = 84%, RESPIRATORY NOTIVIED AND WILL EVALUATE TEODORO.
--- NOTE | 2019-07-03 20:05 | NUR ---
ASSESMENT COMPLETE. PT W/ COARSE RHONCHI THROUGHOUT. PULMONARY TOILET ENCOURAGED. PT STATES HE FEELS SOB. SPO2 92%. PT INSISTS HE NEEDS HIS "BUTEROL" INHALER. EXPLAINED TO PT THAT HE IS ORDERED HIS ALBUTEROL THROUGH A NEBULIZER WHILE INPATIENT. PATIENT INSIST HE STILL NEEDS HIS INHALER. 2 GUARDS AT BEDSIDE. PT WITH METAL CUFF TO RLE.
--- NOTE | 2019-07-03 21:24 | NUR ---
RT IN TO ASSESS PT'S RESP STATUS AND ADMIN DUONEB AT PT'S REQUEST. RT REPORTS NO FURTHER INTERVENTION NEEDED IN HIS OPINION.
--- NOTE | 2019-07-03 23:30 | NUR ---
PT ASSISTED UP TO BSC, ATTEMPTED TO HAVE BM W/O RESULTS. PT REQUEST TO SIT UP IN CHAIR. PT UP TO RECLINER CHAIR. REQUESTS SNACK, ICE CREAM AND YADIRA CRACKERS PROVIDED.
--- NOTE | 2019-07-04 03:01 | NUR ---
PT ASSISTED BACK TO BED FROM CHAIR. RT CALLED FOR NEB TX PER PTS REQUEST.
--- NOTE | 2019-07-04 04:15 | NUR ---
PT SLEEPING, APPEARS COMFORTABLE AND IN NO DISTRESS. RESP REG AND UNLABORED. CALL JEREZ REMAINS WITHIN REACH. BED ALARM ON. BED LOCKED IN LOW POSITION WITH TOP BED RAILS UP X2. ITEMS WITHIN REACH.
[2019-07-04 06:12] VITALS: BP 120/71
--- NOTE | 2019-07-04 07:00 | NUR ---
SHIFT CHANGE REPORT, PT AWAKE AND ALERT, BREATHING SHALLOW AND LABORED, O2 @ 6L NC IN PLACE, TELE MONITOR IN PLACE, SHACKLED TO BED, GUARDS IN ROOM, CALL JEREZ IN PLACE, WILL CONTINUE TO MONITOR.
[2019-07-04 09:20] VITALS: BP 115/74
[2019-07-04 11:25] LABS: HEMATOCRIT 37.5 % (39.0-50.0); HEMOGLOBIN 11.4 g/dl (14.0-18.0); IMMATURE GRANULOCYTES 0.8 % (0.0-5.0); MEAN CELL VOLUME 84.3 fL CALC (80.0-100.0); MEAN CORPUSCULAR HGB 25.6 pG CALC (26.0-32.0); MEAN CORPUSCULAR HGB CONC 30.4 g/dL CAL (32.0-36.0); NEUT# 9.42 thou/uL (1.82-7.42); RED BLOOD COUNT 4.45 mill/uL (4.70-6.10); RED CELL DISTRI WIDTH 17.8 % (11.5-15.5)
--- NOTE | 2019-07-04 12:00 | NUR ---
PT CONTINUES TO HAVE LABORED BREATHING, NURSE UNABLE TO OBTAIN O2 SATS EVEN AFTER HANDS ARE WARMED, OFFICE CLINICIAN AND RESPIRATORY INFORMED, TREATMENT GIVEN, NEW ORDERS WRITTEN, WILL CONTINUE TO MONITOR.
[2019-07-04 13:08] LABS: BUN 15 mg/dL (8-23); BUN/CREATININE RATIO 34 (12-20 (CALC)); CHLORIDE 101 mmol/l (95-108); CREATININE 0.4 mg/dL (0.7-1.3); GFR > 60 ML/MIN (>=60 (CALC)); GFR FOR AFR.AMER. > 60 ML/MIN (>=60 (CALC)); SODIUM 138 mmol/l (137-146)
[2019-07-04 13:09] LABS: ANION GAP 17 (6-22 (CALC)); CARBON DIOXIDE 25 mmol/l (22-30); MAGNESIUM 2.1 mg/dL (1.6-2.3); POTASSIUM 5.3 mmol/l (3.5-5.1)
[2019-07-04 15:51] VITALS: BP 111/69
--- NOTE | 2019-07-04 16:00 | NUR ---
ASSISTED PT UP TO RECLINER FOR MEAL, BREATHING STILL LABORED, PT HAS BEEN C/O STOMACH PAIN AGGRAVATED BY COUGHING, ISSUE ADDRESSED AFTER NEW ORDERS WRITTEN, WILL CONTINUE TO MONITOR.
[2019-07-04 18:55] VITALS: BP 102/64
--- NOTE | 2019-07-04 21:00 | NUR ---
PT SITTING UP IN CHAIR. REQUEST ICE CREAM AND YADIRA CRACKERS FOR HS SNACK. PROVIDED PER PTS REQUEST. PT TOLERATED SNACK. MEDICATED PRN FOR ANXIETY AND COUGH WITH SCHEDULED HS MEDS, SEE MAR. PHYLLIS X2 PRESENT IN ROOM W/ PT. PT IS PLEASANT AND COOPERATIVE. DENIES FURTHER NEEDS AT THIS TIME. CALL JEREZ WITHIN REACH. AGREES TO CALL PRN.
[2019-07-04 23:40] VITALS: BP 97/56
--- NOTE | 2019-07-04 23:45 | NUR ---
PT BACK TO BED PER HIS REQUEST. BED LOCKED IN LOW POSITION W. BEDRAILS UPX2. CALL JEREZ WITHIN REACH, AGREES TO CALL PRN.
--- NOTE | 2019-07-05 01:33 | NUR ---
PT SLEEPING, APPEARS COMFORTABLE AND IN NO DISTRESS. RESP REG & UNLABORED. CALL JEREZ REMAINS WITHIN REACH. SAFETY AND FALL INTERVENTIONS REMAIN IN PLACE. GUARDS X2 IN ROOM W/ PT.
[2019-07-05 04:37] VITALS: BP 119/65
[2019-07-05 05:39] LABS: BUN 15 mg/dL (8-23); BUN/CREATININE RATIO 39 (12-20 (CALC)); CHLORIDE 97 mmol/l (95-108); CREATININE 0.4 mg/dL (0.7-1.3); GFR > 60 ML/MIN (>=60 (CALC)); GFR FOR AFR.AMER. > 60 ML/MIN (>=60 (CALC)); POTASSIUM 4.5 mmol/l (3.5-5.1); SODIUM 137 mmol/l (137-146)
--- NOTE | 2019-07-05 05:43 | NUR ---
PT REFUSES TO GET UP FOR DAILY WEIGHT. NO CHANGE IN ASSESMENT. GUARDS REMAIN AT BEDSIDE X2. CALL JEREZ WITHIN REACH. SAFETY AND FALL INTERVENTION REMAIN IN PLACE.
[2019-07-05 05:48] LABS: ANION GAP 11 (6-22 (CALC)); CARBON DIOXIDE 34 mmol/l (22-30)
--- NOTE | 2019-07-05 07:00 | NUR ---
REPORT RECEIVED FROM STEFANIE KERNS;PT RESTING IN SEMI FOWLERS POSITION WITH X2 GUARDS AT BEDSIDE;RESPIRATIONS SHALLOW ON O2 @ 6L VIA NC,COARSE LUNG SOUNDS;NON-PRODUCTIVE COUGH NOTED;VS OBTAINED AND ASSESSMENT COMPLETED; ABDOMEN SOFT ON PALPATION AND ACTIVE IN ALL 4 QUADRANTS;STRONG PEDAL PULSES;SKIN INTACT;TELE MONITORING IN PLACE;#22G TO RAC FLUSHED AND PATENT,SITE APPEARS HEALTHY;PT MEDICATED WITH PRN LORTAB 5/325MG PO FOR ABDOMINAL PAIN RATING 8/10 ON THE PAIN SCALE,XANAX 0.5MG PO AND PRN ROBITUSSIN AT THIS TIME;PT DENIES ANY ADDITIONAL NEEDS AND IS ENCOURAGED TO CALL FOR ASSISTANCE IF NEEDED;FALL PRECAUTIONS IN PLACE WITH BED IN THE LOWEST POSITION AND CALL LIGHT IN REACH;WILL CONTINUE TO MONITOR
[2019-07-05 07:28] VITALS: BP 118/70
[2019-07-05 09:39] VITALS: BP 101/67
[2019-07-05 10:58] VITALS: BP 102/63
--- NOTE | 2019-07-05 12:00 | NUR ---
PT OOB RESTING ON BEDSIDE COMMODE WITH X2 GUARDS AT BEDSIDE;RESPIRATIONS REMAIN SHALLOW ON O2 @ 6L VIA NC;PT DENIES ANY ADDITIONAL NEEDS AT THIS TIME;TELE MONITORING IN PLACE;PT EDUCATED ON NPO DIET UNTIL ABDOMINAL ULTRASOUND CAN BE OBTAINED;ASSESSMENT REMAINS UNCHANGED AT THIS TIME;ENCOURAGED TO CALL FOR ASSISTANCE IF NEEDED;FALL PRECAUTIONS IN PLACE WITH CALL LIGHT IN REACH;WILL CONTINUE TO MONITOR
--- NOTE | 2019-07-05 14:32 | NUR ---
PT CALLS NURSE TO REPORT SOB. PT HOB ELEVATED AND O2 SATS READ 94% ON PULSE OX VIA NC @ 6L.
--- NOTE | 2019-07-05 15:44 | NUR ---
PT TRANSPORTED TO [facility], [place] IN STABLE CONDITION VIA WHEELCHAIR ACCOMPANIED BY STEFANIE ROJAS AND 2 GUARDS.
--- NOTE | 2019-07-05 16:15 | NUR ---
PT RETURNED BACK TO MED/SURG ROOM 277 IN STABLE CONDITION VIA WHEELCHAIR ACCOMPANIED STEFANIE ROJAS AND GUARDS AT BEDSIDE;PT RE-POSITIONED INTO BED;RESPIRATIONS REMAIN SHALLOW ON O2 @ 6L VIA NC,INCREASED EXERTIONAL SOB NOTED;IV SITE PATENT;TELE MONITORING IN PLACE;PT ENCOURAGED TO CALL FOR ASSISTANCE;CALL LIGHT IN REACH;WILL CONTINUE TO MONITOR
[2019-07-05 16:54] VITALS: BP 101/71
--- NOTE | 2019-07-05 18:08 | NUR ---
PT REPORTS SOB STATING "I CANT BREATH", O2 SATS @ 100% ON O2 @ 6L VIA NC;PT RE-POSITIONED IN BED FOR COMFORT;GUARDS REMAIN AT BEDSIDE;WILL CONTINUE TO MONITOR
[2019-07-05 18:36] VITALS: BP 102/64
--- NOTE | 2019-07-05 18:50 | NUR ---
PT REPORTS ABDOMINAL PAIN RATING 9/10 ON THE PAIN SCALE AND REQUESTS PAIN MEDICATION,PT MEDICATED WITH PRN LORTAB 5/325MG PO AND XANAX 0.5MG PO AT THIS TIME;WILL CONTINUE TO MONITOR FOR EFFECTIVENESS
--- NOTE | 2019-07-05 20:50 | NUR ---
PHYISCAL ASSESMENT COMPLETE. PLAN OF CARE REVIEWED W/ PT. PT VERBALIZES UNDERSTANDING, DENIES QUESTIONS @ THIS TIME. GUARDS X2 @ BEDSIDE. MEDICATED W/ PRN SLEEP AID, INHALER, AND ANTITUSSIVE PER PTS REQUEST. SEE MAR. OFFERED PT SNACK, PT REQUEST POPSICLE. POLISH ICE CUP PROVIDED. PT DENIES FURTHER NEEDS @ THIS TIME. BED LOCKED IN LOW POSITION W/ BEDRAILS UPX2. ITEMS WITHIN REACH. CALL JEREZ WITHIN REACH. AGREES TO CALL PRN.
[2019-07-06 00:03] VITALS: BP 102/67
--- NOTE | 2019-07-06 00:08 | NUR ---
PT APPEARS TO BE SLEEPING COMFORTABLY. NO APPARENT DISTRESS. RESP REGULAR & UNLABORED. BED REMAINS LOCKED IN LOW POSITION W/ BEDRAILS UPX2. ITEMS REMAIN WITHIN REACH. CALL JEREZ REMAINS WITHIN REACH. GUARDS X2 REMAIN AT BEDSIDE.
[2019-07-06 04:01] VITALS: BP 101/65
--- NOTE | 2019-07-06 04:10 | NUR ---
PT APPEARS TO BE SLEEPING COMFORTABLY. NO APPARENT DISTRESS. RESP REGULAR & UNLABORED. BED REMAINS LOCKED IN LOW POSITION W/ BEDRAILS UPX2. ITEMS REMAIN WITHIN REACH. CALL JEREZ REMAINS WITHIN REACH.
--- NOTE | 2019-07-06 07:00 | NUR ---
REPORT RECEIVED FROM LUIS FRN;PT RESTING IN SEMI FOWLERS POSITION WITH X2 GUARDS AT BEDSIDE;INTRODUCED SELF TO PT AND POC DISCUSSED;RESPIRATIONS EVEN AND UNLABORED ON O2 @ 6L VIA NC;PT DENIES ANY CURRENT PAIN OR DISCOMFORTS;TELE MONITORING IN PLACE;IV SITE PATENT;PT DENIES ANY ADDITIONAL NEEDS AT THIS TIME AND IS ENCOURAGED TO CALL FOR ASSISTANCE IF NEEDED;BED IN THE LOWEST POSITION WITH CALL LIGHT IN REACH;WILL CONTINUE TO MONITOR
--- NOTE | 2019-07-06 08:05 | NUR ---
PT RESTING AT BEDSIDE WITH X2 GUARDS EATING BREAKFAST,A&O X3;VS OBTAINED AND ASSESSMENT COMPLETED;PT DENIES ANY CURRENT PAIN OR DISCOMFORTS,PAIN SCALE AND REPORTING EDUCATED;RESPIRATIONS SHALLOW ON O2 @ 6L VIA NC,NON-PRODUCTIVE COUGH NOTED;ABDOMEN DISTENDED/SOFT ON PALPATION AND ACTIVE IN ALL 4 QUADRANTS;WEAK PEDAL PULSES;SKIN INTACT;TELE MONITORING IN PLACE;#22G TO RAC FLUSHED AND PATENT,SITE APPEARS HEALTHY;PT DENIES ANY ADDITIONAL NEEDS AND IS ENCOURAGED TO CALL FOR ASSISTANCE IF NEEDED;FALL PRECAUTIONS IN PLACE WITH BED IN THE LOWEST POSITION AND CALL LIGHT IN REACH;WILL CONTINUE TO MONITOR
[2019-07-06 08:06] VITALS: BP 112/81
--- NOTE | 2019-07-06 10:30 | NUR ---
PT REPORTS ABDOMINAL PAIN RATING 8/10 ON THE PAIN SCALE AND REQUESTS PAIN MEDICATION,PT MEDICATED WITH PRN LORTAB 5/325MG PO AND XANAX 0.5MG PO AT THIS TIME;PT DENIES ANY ADDITIONAL NEEDS;WILL CONTINUE TO MONITOR FOR EFFECTIVENESS
[2019-07-06 10:50] VITALS: BP 91/60
--- NOTE | 2019-07-06 11:13 | NUR ---
STEFANIE BROWN FROM [facility] UPDATED.
--- NOTE | 2019-07-06 11:30 | NUR ---
PT RESTING IN SEMI FOWLERS POSITION WITH X2 GUARDS AT BEDSIDE;RESPIRATIONS REMAIN SHALLOW/LABORED ON O2 @ 6L VIA NC;PT REPORTS THAT ABDOMINAL PAIN HAS DECREASED SINCE PAIN MEDICATION ADMINISTRATION;IV SITE PATENT;TELE MONITORING IN PLACE;ASSESSMENT REMAINS UNCHANGED AT THIS TIME;PT ENCOURAGED TO CALL FOR ASSISTANCE IF NEEDED;CALL LIGHT IN REACH;WILL CONTINUE TO MONITOR
--- NOTE | 2019-07-06 11:30 | NUR ---
AT BEDSIDE DISCUSSING POC
[2019-07-06 15:27] VITALS: BP 92/58
--- NOTE | 2019-07-06 16:00 | NUR ---
PT RESTING IN SEMI FOWLERS POSITION WITH X2 GUARDS AT BEDSIDE;RESPIRATIONS REMAIN SHALLOW ON O2 @ 6L VIA NC;PT DENIES ANY CURRENT PAIN OR NEEDS;TELE MONITORING REMAINS IN PLACE;IV SITE PATENT;FRESH WATER PROVIDED PER REQUEST;PT ENCOURAGED TO CALL FOR ASSISTANCE IF NEEDED;FALL PRECAUTIONS IN PLACE WITH CALL LIGHT IN REACH;WILL CONTINUE TO MONITOR
--- NOTE | 2019-07-06 19:06 | NUR ---
REPORT FROM COLLIN MARINELLI. PT SITTING UP AT BEDSIDE. NO APPARENT DISTRESS NOTED. 02 @ 6L/M VIA NC. PT SHACKLED BY LEFT ANKLE TO CHAIR. X2 GUARDS AT BEDSIDE. PT DENIES ANY PAIN OR DISCOMFORT. URINAL EMPTIED OF DARK YELLOW URINE. DISCUSSED POC. PT VERBALIZED UNDERSTANDING. CALL LIGHT WITHIN REACH. WILL CONTINUE TO MONITOR.
[2019-07-06 19:45] VITALS: BP 113/78
--- NOTE | 2019-07-06 20:52 | NUR ---
PT C/O SOB, PURSE LIPPED BREATHING NOTED. SAT 91% 02 @ 6L/M VIA NC. INHALER PROVIDED. PT MEDICATED FOR ANXIETY AND PAIN AT THIS TIME. WILL CONTINUE TO MONITOR.
--- NOTE | 2019-07-06 21:45 | NUR ---
PT NOW MORE RELAXED. NO APPARENT RESPIRATORY DISTRESS NOTED. 02 SAT 96%. DENIES ANY CURRENT WANTS OR NEEDS. CALL LIGHT WITHIN REACH. WILL CONTINUE TO MONITOR.
--- NOTE | 2019-07-07 01:42 | NUR ---
PT RESTING IN BED. NO APPARENT DISTRESS NOTED. X2 GUARDS AT BEDSIDE. CALL LIGHT WITHIN REACH. WILL CONTINUE TO MONITOR.
[2019-07-07 04:10] VITALS: BP 122/77
--- NOTE | 2019-07-07 04:54 | NUR ---
PT RESTING IN BED WITH EYES CLOSED. X2 GUARDS AT BEDSIDE. NO APPARENT DISTRESS NOTED. CALL LIGHT WITHIN REACH. WILL CONTINUE TO MONITOR.
[2019-07-07 08:00] VITALS: BP 126/80
--- NOTE | 2019-07-07 09:00 | NUR ---
PT AWAKE, ALERT, ORIENTED X 3, APPEARS SHORT OF BREATH WITH MINIMAL EXERTION. PT IS RESTRAINED BY CUFFS TO LEGS PER [facility] POLICY. LUNGS DECREASED, 6 LPM NC HUMIDIFIED.
[2019-07-07 11:10] VITALS: BP 127/70
--- NOTE | 2019-07-07 13:00 | NUR ---
PT OOB INTO CHAIR THIS AFTERNOON. PRODUCTIVE COUGH HEARD OCCASIONALLY. KEVIN FROM [facility] HAS CALLED AND WAS UPDATED. PT REMAINS SOB WITH MINIMAL EXERTION.
[2019-07-07 15:15] VITALS: BP 104/57
--- NOTE | 2019-07-07 17:38 | NUR ---
PT CONTINUES OOB IN CHAIR FOR MUCH OF THE AFTERNOON. NO SHORTNESS OF BREATH NOTED. GUARDS X 2 CONTINUE AT BEDSIDE.
[2019-07-07 19:15] VITALS: BP 100/70
--- NOTE | 2019-07-07 19:35 | NUR ---
REPORT FROM MARTÍNEZ WATTS. PT SITTING UP AT BEDSIDE. NO APPARENT DISTRESS NOTED. 02 @ 6L/M VIA NC. PT SHACKLED BY BLE. X2 GUARDS AT BEDSIDE. PT DENIES ANY PAIN OR DISCOMFORT. URINAL EMPTIED OF DARK YELLOW URINE. DISCUSSED POC. PT VERBALIZED UNDERSTANDING. CALL LIGHT WITHIN REACH. WILL CONTINUE TO MONITOR.
--- NOTE | 2019-07-07 23:32 | NUR ---
PT RESTING IN BED WITH EYES CLOSED. NO APPARENT DISTRESS NOTED. SHACKLED TO BED BY LEFT ANKLE. X2 GUARDS PRESENT IN ROOMW. CALL LIGHT WITHIN REACH. WILL CONTINUE TO MONITOR.
[2019-07-08 00:17] VITALS: BP 124/75
[2019-07-08 04:25] VITALS: BP 142/86
[2019-07-08 08:00] VITALS: BP 133/81
--- NOTE | 2019-07-08 08:05 | NUR ---
PT AWAKE, ALERT, ORIENTED X 3. LUNGS DECREASED, OXYGEN AT 6 LPM NC. GUARDS X 2 AT BEDSIDE. PT INTERACTIVE THIS MORNING, RESPONDING APPROPRIATELY TO QUESTIONS.
[2019-07-08] MEDS ORDERED: LEVOFLOXACIN250 M1 PO (11:10)
--- NOTE | 2019-07-08 14:03 | NUR ---
PT HAS BEEN DISCHARGED BACK TO FACILITY BY DR MORE. PT VERBALIZED UNDERSTANDING OF DC INSTRUCTIONS, TAKEN TO VEHICLE BY HIS OWN WHEELCHAIR, ACCOMPANIED BY GUARDS X 2. PT LEAVES IN SERIOUS BUT STABLE CONDITION, USES 6 LPM BY ZULMA.
== END 2019-07-08 14:04 | disposition designated cancer center or children's hospital (05) | DRG 871 ==
PROVIDERS: Family Medicine; Nurse Practitioner Family; ADMIT Internal Medicine
PROC: 02HV33Z Insertion of Infusion Device into Superior Vena Cava, Percutaneous Approach (ICD-10-PCS; principal; 2019-06-28)
PROC: 5A09357 Assistance with Respiratory Ventilation, Less than 24 Consecutive Hours, Continuous Positive Airway Pressure (ICD-10-PCS; 2019-06-28)
DX: A41.9 Sepsis, unspecified organism (principal); J18.9 Pneumonia, unspecified organism; J96.21 Acute and chronic respiratory failure with hypoxia; J96.22 Acute and chronic respiratory failure with hypercapnia; J44.0 Chronic obstructive pulmonary disease with (acute) lower respiratory infection; J44.1 Chronic obstructive pulmonary disease with (acute) exacerbation; R65.20 Severe sepsis without septic shock; I10 Essential (primary) hypertension; I25.10 Atherosclerotic heart disease of native coronary artery without angina pectoris; E78.5 Hyperlipidemia, unspecified; K31.89 Other diseases of stomach and duodenum; R10.84 Generalized abdominal pain; Z99.81 Dependence on supplemental oxygen; Z87.891 Personal history of nicotine dependence; Z95.5 Presence of coronary angioplasty implant and graft; Z79.02 Long term (current) use of antithrombotics/antiplatelets; Z66 Do not resuscitate
CPT/HCPCS: J0692; J3475; Q9967

== ENCOUNTER 2019-07-12 | Emergency (ER) | payer OTHER ==
[~2019-07-12] MED LIST changes: +DIPHENHYDRAM50 M2 PO; +LEVOFLOXACIN250 M1 PO; +OMEPRAZOLE DR20 MG PO
[2019-07-12 22:10] LABS: IMMATURE GRANULOCYTES 1.9 % (0.0-5.0); MEAN CELL VOLUME 82.5 fL CALC (80.0-100.0); MEAN CORPUSCULAR HGB 25.1 pG CALC (26.0-32.0); MEAN CORPUSCULAR HGB CONC 30.5 g/dL CAL (32.0-36.0); NEUT# 14.7 thou/uL (1.82-7.42); RED BLOOD COUNT 5.37 mill/uL (4.70-6.10); RED CELL DISTRI WIDTH 18.6 % (11.5-15.5)
[2019-07-12] MEDS ORDERED: LEVOFLOXACIN750 MG PO (22:11)
[2019-07-12 22:12] LABS: HEMATOCRIT 44.3 % (39.0-50.0); HEMOGLOBIN 13.5 g/dl (14.0-18.0)
[2019-07-12 22:22] LABS: ALKALINE PHOSPHATASE 85 u/l (38-126); BUN 19 mg/dL (8-23); BUN/CREATININE RATIO 23 (12-20 (CALC)); CHLORIDE 91 mmol/l (95-108); CREATININE 0.8 mg/dL (0.7-1.3); GFR > 60 ML/MIN (>=60 (CALC)); GFR FOR AFR.AMER. > 60 ML/MIN (>=60 (CALC)); SGOT/AST 27 u/l (19-48); SODIUM 135 mmol/l (137-146)
[2019-07-12 22:29] LABS: ALBUMIN 4.4 g/dL (3.2-5.0); ANION GAP 22 (6-22 (CALC)); BILIRUBIN, TOTAL 0.7 mg/dL (0.0-1.4); CARBON DIOXIDE 25 mmol/l (22-30); POTASSIUM 3.2 mmol/l (3.5-5.1); TOTAL PROTEIN 7.7 g/dL (6.3-8.2)
[2019-07-12 22:34] LABS: MYOGLOBIN 168 ng/mL (0 - 121)
[2019-07-12] MEDS ORDERED: PREDNISONE50 MG PO (23:39)
== END 2019-07-13 00:30 | disposition designated cancer center or children's hospital (05) | DRG 192 ==
PROVIDERS: Family Medicine
DX: J44.1 Chronic obstructive pulmonary disease with (acute) exacerbation (principal); I11.0 Hypertensive heart disease with heart failure; I50.9 Heart failure, unspecified; Z20.828 Contact with and (suspected) exposure to other viral communicable diseases